=== PATIENT | male | born 1995 | race Two or more races ===

== ENCOUNTER 2019-12-16 15:36 | Emergency (ER) | payer MEDICAID, OTHER ==
[~2019-12-16] VITALS: Ht 172.7 cm; Wt 90.7 kg
[2019-12-16 20:35] VITALS: BP 115/70
== END 2019-12-16 21:34 | disposition home or self-care (01) ==
LOC: ER 15:38
DX: Z76.0 Encounter for issue of repeat prescription (principal); F31.9 Bipolar disorder, unspecified